=== PATIENT | female | born 1945 | race Caucasian/White ===

== ENCOUNTER 2017-02-06 06:12 | Emergency (ER) | payer OTHER ==
[~2017-02-06] VITALS: Ht 160 cm; Wt 58.4 kg
[~2017-02-06 06:12] MED LIST: ALBUTEROL17 GM IH; BRETHINE; CRESTOR; CRESTOR10 MG PO; FLOVENT 11120 INHALA IH; LEXAPRO10 MG PO; PREDNISONE2.5 MG PO; PREDNISONE5 M2 PO; PREMPRO; PREMPRO 0.621 TABLET PO; PROAIR HFA8.5 GM IH; THEO-DUR,THEOC300 MG PO; TYLOX1 CAPSULE PO
[2017-02-06 07:15] LABS: EOSINOPHIL (%) 7.7 % (0-5); EOSINOPHIL COUNT 0.5 K/uL (0-0.3); IMMATURE GRANULOCYTE (%) 0.3 % (0.0-0.7); INSTRUMENT ABS NEUTROPHIL CT 3.8 K/uL; LYMPHOCYTE COUNT 1.2 K/uL (1.0-2.8); MCH 28.9 PG (29.0-34.0); MCHC 31.9 G/DL (30.0-36.0); MCV 90.7 FL (83-99); MEAN PLAT.VOLUME 10.1 uM^3 (9.5-12.4); MONOCYTE (%) 7.6 % (3-12); MONOCYTE COUNT 0.5 K/uL (0-0.8); NEUTROPHIL (%) 64.2 % (45-76); NEUTROPHIL COUNT 3.8 K/uL (1.8-6.4); PLATELET COUNT 271 K/uL (156-360); RBC DIS.WIDTH-CV 13.1 % (11.8-14.6); RED BLOOD COUNT 4.08 M/uL (3.80-5.20); WHITE BLOOD COUNT 5.9 K/uL (4.1-10.2)
[2017-02-06 08:07] LABS: ANION GAP 5 MEQ/L (2-14); CHLORIDE 104 MEQ/L (99-109); GFR ESTIMATE (CALCULATED) > 59 mL/min/; GLUCOSE 125 mg/dL (70-99); POTASSIUM 4.1 MEQ/L (3.7-5.4); SAMPLE HEMOLYSIS CHECK 0; SAMPLE ICTERIC CHECK 0; SAMPLE LIPEMIA CHECK 0; SODIUM 139 MEQ/L (136-147); UREA NITROGEN (BUN) 13 mg/dL (9-23)
[2017-02-06] MEDS ORDERED: PERCOCET 5/31 TABLET PO (09:51)
[2017-02-06 10:10] VITALS: BP 118/56
== END 2017-02-06 10:11 | disposition home or self-care (01) ==
LOC: EME 06:12
PROVIDERS: Emergency Medicine
DX: S22.41XA Multiple fractures of ribs, right side, initial encounter for closed fracture (principal); W18.2XXA Fall in (into) shower or empty bathtub, initial encounter; Y93.E1 Activity, personal bathing and showering; Y92.002 Bathroom of unspecified non-institutional (private) residence as the place of occurrence of the external cause; J45.909 Unspecified asthma, uncomplicated; J44.9 Chronic obstructive pulmonary disease, unspecified; E78.5 Hyperlipidemia, unspecified; I10 Essential (primary) hypertension; F17.200 Nicotine dependence, unspecified, uncomplicated
CPT/HCPCS: 71260; 80048; 85025; 99281; 99285; J2270; J7030

== ENCOUNTER 2018-01-14 06:02 | Emergency (ER) | payer OTHER ==
[~2018-01-14] VITALS: Ht 160 cm; Wt 55.2 kg
[~2018-01-14 06:02] MED LIST changes: +PERCOCET 5/31 TABLET PO
[2018-01-14 09:15] VITALS: BP 134/62
== END 2018-01-14 09:18 | disposition home or self-care (01) ==
LOC: EME 06:02
DX: S69.92XA Unspecified injury of left wrist, hand and finger(s), initial encounter (principal); W18.30XA Fall on same level, unspecified, initial encounter; Y92.129 Unspecified place in nursing home as the place of occurrence of the external cause; Y99.0 Civilian activity done for income or pay; J45.909 Unspecified asthma, uncomplicated; F17.200 Nicotine dependence, unspecified, uncomplicated; Z88.1 Allergy status to other antibiotic agents
CPT/HCPCS: 73110; 99281; 99283